=== PATIENT | male | born 1985 | race Hispanic/Latino ===

== ENCOUNTER 2021-04-29 09:28 | Emergency (ER) | payer OTHER ==
[~2021-04-29] VITALS: Ht 167.6 cm; Wt 93.0 kg
[2021-04-29 09:31] VITALS: BP 124/71
== END 2021-04-29 10:05 | disposition home or self-care (01) ==
LOC: EDH 09:28
DX: S29.012A Strain of muscle and tendon of back wall of thorax, initial encounter (principal); S63.502A Unspecified sprain of left wrist, initial encounter; F17.200 Nicotine dependence, unspecified, uncomplicated; Z71.6 Tobacco abuse counseling; X58.XXXA Exposure to other specified factors, initial encounter; Y93.89 Activity, other specified; Y92.89 Other specified places as the place of occurrence of the external cause; Y99.8 Other external cause status
CPT/HCPCS: 99281